=== PATIENT | male | born 1930 | race Caucasian/White ===

== ENCOUNTER 2016-08-08 10:42 | Inpatient (IN) | payer MEDICARE ==
[~2016-08-08] VITALS: Ht 160 cm; Wt 61.4 kg
[2016-08-08 12:30] VITALS: BP 114/65
[2016-08-08] MEDS ORDERED: FENTANYL PF 100 MCG/2ML ONE (13:13)
[2016-08-08] MEDS ORDERED: MIDAZOLAM 1 MG/ML, 5ML ONE (13:13)
[2016-08-08] MEDS ORDERED: HEPARIN 1,000 UNITS/ML, 10ML ONE (13:14)
[2016-08-08] MEDS ORDERED: LIDOCAINE 2%, 20ML ONE (13:14)
[2016-08-08] MEDS ORDERED: VERAPAMIL 2.5 MG/ML, 2ML ONE (13:14)
[2016-08-08] MEDS ORDERED: NITROGLYCERIN 5 MG/ML, 10ML ONE (13:16)
[2016-08-08] MEDS ORDERED: PLEASE ENTER HEIGHT AND WEIGHT MC SCH (13:30)
[2016-08-08] MEDS ORDERED: ONDANSETRON 2MG/ML, 2ML IVPush PRN (14:00)
[2016-08-08] MEDS ORDERED: DOCUSATE 100 MG CAPSULE PO PRN (14:00)
[2016-08-08] MEDS ORDERED: HYDROcodone/APAP 5/325 TABLET PO PRN (14:00)
[2016-08-08 15:09] VITALS: BP 116/61
[2016-08-08 16:15] LABS: IS PT STATUS REG ER OR PRE ER? NO
[2016-08-08] MEDS ORDERED: ONDA4TAB7 PO (16:25)
[2016-08-08] MEDS ORDERED: ASPI-647 PO (16:25)
[2016-08-08] MEDS ORDERED: HYDR500C PO (16:25)
[2016-08-08] MEDS ORDERED: ROSU5TAB PO (16:25)
[2016-08-08] MEDS ORDERED: CHOL500014 PO (16:25)
[2016-08-08] MEDS ORDERED: FURO-93 PO (16:25)
[2016-08-08] MEDS ORDERED: CLOP75TA22 PO (16:25)
[2016-08-08] MEDS ORDERED: CARV6.2512 PO (16:25)
[2016-08-08] MEDS ORDERED: IRBE300T40 PO (16:25)
[2016-08-08] MEDS ORDERED: POT25TAB PO (16:25)
[2016-08-08] MEDS ORDERED: ONDA4TAB7 IVPush (16:25)
[2016-08-08] MEDS ORDERED: FINA5TAB PO (16:25)
[2016-08-08 17:47] VITALS: BP 153/90
[2016-08-08] MEDS: FUROSEMIDE 40 MG/4 ML IV SCH (17:48)
[2016-08-08] MEDS: CARVEDILOL 6.25 MG TABLET PO SCH (17:48)
[2016-08-08 19:59] LABS: IS PT STATUS REG ER OR PRE ER? NO
[2016-08-08 20:55] VITALS: BP 128/75
[2016-08-08] MEDS: HYDROXYUREA 500 MG CAPSULE PO SCH (21:40)
[2016-08-08] MEDS: ATORVASTATIN 40 MG TABLET PO SCH (21:54)
[2016-08-08] MEDS: FAMOTIDINE 20 MG TABLET PO SCH (21:54)
[2016-08-09 01:31] VITALS: BP 112/65
[2016-08-09 05:02] LABS: BLOOD UREA NITROGEN 33 mg/dL (7-18)
[2016-08-09] MEDS: ASPIRIN 81 MG TABLET EC PO SCH (06:00)
[2016-08-09] MEDS: CARVEDILOL 6.25 MG TABLET PO SCH ×2 (06:00→17:57)
[2016-08-09] MEDS ORDERED: POTASSIUM CHLORIDE 10 MEQ TABLET.ER PO SCH (08:00)
[2016-08-09 09:35] VITALS: BP 89/45
[2016-08-09 09:36] VITALS: BP 95/54
[2016-08-09] MEDS: FINASTERIDE 5 MG TABLET PO SCH (09:37)
[2016-08-09] MEDS: FAMOTIDINE 20 MG TABLET PO SCH ×2 (09:37→21:36)
[2016-08-09] MEDS: CLOPIDOGREL 75 MG TABLET PO SCH (09:37)
[2016-08-09] MEDS: IRBESARTAN 300 MG TABLET PO SCH (09:38)
[2016-08-09] MEDS: FUROSEMIDE 40 MG/4 ML IV SCH (09:38)
[2016-08-09] MEDS: HYDROXYUREA 500 MG CAPSULE PO SCH ×2 (11:47→21:35)
[2016-08-09 13:37] VITALS: BP 108/56
[2016-08-09 17:58] VITALS: BP 129/65
[2016-08-09 19:32] VITALS: BP 99/66
[2016-08-09] MEDS ORDERED: POTASSIUM CHLORIDE 20 MEQ TAB.ER.PRT PO SCH (21:00)
[2016-08-09] MEDS: ATORVASTATIN 40 MG TABLET PO SCH (21:33)
[2016-08-10 01:18] VITALS: BP 119/57
[2016-08-10 05:03] LABS: BLOOD UREA NITROGEN 46 mg/dL (7-18)
[2016-08-10] MEDS: CARVEDILOL 6.25 MG TABLET PO SCH (05:47)
[2016-08-10] MEDS: ASPIRIN 81 MG TABLET EC PO SCH (05:47)
[2016-08-10 07:50] VITALS: BP 121/42
[2016-08-10] MEDS ORDERED: POTASSIUM CHLORIDE 20 MEQ TAB.ER.PRT PO SCH (08:00)
[2016-08-10] MEDS: HYDROXYUREA 500 MG CAPSULE PO SCH (08:23)
[2016-08-10] MEDS: CLOPIDOGREL 75 MG TABLET PO SCH (08:26)
[2016-08-10] MEDS: FINASTERIDE 5 MG TABLET PO SCH (08:26)
[2016-08-10] MEDS: IRBESARTAN 300 MG TABLET PO SCH (08:26)
[2016-08-10] MEDS: FAMOTIDINE 20 MG TABLET PO SCH (08:26)
[2016-08-10] MEDS ORDERED: FUROSEMIDE 20 MG TABLET PO SCH (09:00)
[2016-08-10] MEDS ORDERED: ATOR40TA78 PO (10:12)
[2016-08-10] MEDS ORDERED: ASPI-621 PO (10:12)
== END 2016-08-10 12:36 | disposition home or self-care (01) | DRG 280 ==
LOC: 5SO 12:30
PROC: 4A023N7 Measurement of Cardiac Sampling and Pressure, Left Heart, Percutaneous Approach (ICD-10-PCS; principal; 2016-08-08)
PROC: B2111ZZ Fluoroscopy of Multiple Coronary Arteries using Low Osmolar Contrast (ICD-10-PCS; 2016-08-08)
PROC: B2151ZZ Fluoroscopy of Left Heart using Low Osmolar Contrast (ICD-10-PCS; 2016-08-08)
DX: I21.4 Non-ST elevation (NSTEMI) myocardial infarction (principal); J96.01 Acute respiratory failure with hypoxia; I50.43 Acute on chronic combined systolic (congestive) and diastolic (congestive) heart failure; E78.5 Hyperlipidemia, unspecified; I11.0 Hypertensive heart disease with heart failure; I25.10 Atherosclerotic heart disease of native coronary artery without angina pectoris; G47.33 Obstructive sleep apnea (adult) (pediatric); I25.5 Ischemic cardiomyopathy; I34.0 Nonrheumatic mitral (valve) insufficiency; N40.0 Benign prostatic hyperplasia without lower urinary tract symptoms; Z82.3 Family history of stroke; Z82.49 Family history of ischemic heart disease and other diseases of the circulatory system; Z87.891 Personal history of nicotine dependence; I25.2 Old myocardial infarction; Z95.0 Presence of cardiac pacemaker; Z95.2 Presence of prosthetic heart valve; Z79.899 Other long term (current) drug therapy; Z79.82 Long term (current) use of aspirin
CPT/HCPCS: 36415; 71010; 80048; 80061; 83735; 84443; 84484; 85025; 93005; 93306; 93458; C1894; J1644; J1940; J2250; J3010; J3490; Q9967

== ENCOUNTER 2017-10-17 12:37 | Emergency (ER) | payer MEDICARE ==
[~2017-10-17] VITALS: Ht 170.2 cm; Wt 62.0 kg
[~2017-10-17 12:37] MED LIST: ASPI-515 PO; ASPI-621 PO; ASPI-647 PO; ATOR40TA78 PO; CARV12.543 PO; CARV6.2512 PO; CEFD300C37 PO; CHOL500045 PO; CLOP75TA52 PO; DOXY100T PO; FINA5TAB PO; FURO-93 PO; HYDR500C PO; IPRA12.9 INH; IRBE150T49 PO; IRBE300T40 PO; IRBE75TA31 PO; LACT1CAP24 PO; ONDA4TAB7 IVPush; ONDA4TAB7 PO; POLY17PO5 PO; POT25TAB PO; PREG25CA PO; QUET25TA PO; ROSU5TAB PO; SPIR25TA PO
[2017-10-17 13:32] LABS: ALBUMIN 2.6 g/dL (3.4-5.0); ANION GAP 6 mmol/L (5-15); CALCIUM 8.5 mg/dL (8.5-10.1); CHLORIDE 110 mmol/L (98-107); CREATININE 1.78 mg/dL (0.7-1.3)
[2017-10-17 13:49] LABS: INTERNATIONAL NORMALIZED RATIO 1.18 (0.93-1.1); PROTHROMBIN TIME 12.2 Seconds (9.6-11.5)
[2017-10-17 13:51] LABS: MEAN CORPUSCULAR HEMOGLOBIN 37.1 pg (27.5-34.5); MEAN CORPUSCULAR HGB CONC 31.7 g/dL (33.2-36.2); MEAN CORPUSCULAR VOLUME 117.1 fL (81-97); MEAN PLATELET VOLUME 7.3 fL (7.4-10.4); PLATELET COUNT 545 x10^3/uL (130-400); RED BLOOD COUNT 2.43 x10^6/uL (4.38-5.82)
[2017-10-17 14:03] LABS: BASOPHILS # (AUTO) 0.13 x10^3/uL (0-0.1); BASOPHILS % (AUTO) 1 % (0-1); EOSINOPHILS # (AUTO) 0.38 x10^3/uL (0-0.4); EOSINOPHILS % (AUTO) 2 % (1-7); LYMPHOCYTES # (AUTO) 0.31 x10^3/uL (1-3.4); LYMPHOCYTES % (AUTO) 1 % (22-44); MD SCAN; MONOCYTES # (AUTO) 0.54 x10^3/uL (0.2-0.8); MONOCYTES % (AUTO) 2 % (2-9); NEUTROPHILS # (AUTO) 21.25 x10^3/uL (1.8-6.8); NEUTROPHILS % (AUTO) 94 % (42-75)
[2017-10-17 15:15] LABS: MICROSCOPIC INDICATED
[2017-10-17 15:20] LABS: CULTURE INDICATED? YES
[2017-10-17 16:42] VITALS: BP 134/55
== END 2017-10-17 17:36 | disposition home or self-care (01) ==
LOC: ED 17:30
DX: R31.9 Hematuria, unspecified (principal); I25.2 Old myocardial infarction; I50.9 Heart failure, unspecified; Z95.2 Presence of prosthetic heart valve; Z95.0 Presence of cardiac pacemaker; Z87.891 Personal history of nicotine dependence
CPT/HCPCS: 36415; 51700; 80048; 81001; 82040; 85025; 85610; 85730; 87086; 87106; 99284

== ENCOUNTER 2017-10-30 13:13 | Inpatient (IN) | payer MEDICARE ==
[~2017-10-30] VITALS: Ht 160 cm; Wt 65.8 kg
[2017-10-30] MEDS ORDERED: SODIUM CHLORIDE 0.9% 1,000ML IVBOLUS ONE (13:30)
[2017-10-30] MEDS ORDERED: SODIUM CHLORIDE FLUSH 10ML SYR IVF ONE (13:30)
[2017-10-30] MEDS ORDERED: PLEASE ENTER HEIGHT AND WEIGHT MC SCH (13:30)
[2017-10-30] MEDS ORDERED: NALOXONE 0.4 MG/ML, 1ML ONE (13:32)
[2017-10-30 13:52] LABS: MEAN CORPUSCULAR HEMOGLOBIN 36.9 pg (27.5-34.5); MEAN CORPUSCULAR HGB CONC 31.9 g/dL (33.2-36.2); MEAN CORPUSCULAR VOLUME 115.4 fL (81-97); MEAN PLATELET VOLUME 6.5 fL (7.4-10.4); PLATELET COUNT 386 x10^3/uL (130-400); RED BLOOD COUNT 2.49 x10^6/uL (4.38-5.82); RED CELL DISTRIBUTION WIDTH 16.1 % (9.4-14.8)
[2017-10-30] MEDS ORDERED: NALOXONE 0.4 MG/ML, 1ML IVPush ONE (14:00)
[2017-10-30 14:02] LABS: ALBUMIN 2.8 g/dL (3.4-5.0); ANION GAP 7 mmol/L (5-15); CALCIUM 8.2 mg/dL (8.5-10.1); CHLORIDE 104 mmol/L (98-107)
[2017-10-30] MEDS ORDERED: FURO-93 PO (14:06)
[2017-10-30] MEDS ORDERED: POTA10TA6 PO (14:06)
[2017-10-30 14:08] LABS: ALANINE AMINOTRANSFERASE 24 U/L (12-78); ALKALINE PHOSPHATASE 87 U/L (45-117); BILIRUBIN,TOTAL 3.6 mg/dL (0.2-1.0); CREATININE 1.87 mg/dL (0.7-1.3); TOTAL PROTEIN 6.8 g/dL (6.4-8.2)
[2017-10-30 14:13] LABS: INTERNATIONAL NORMALIZED RATIO 1.19 (0.93-1.1); PROTHROMBIN TIME 12.2 Seconds (9.6-11.5)
[2017-10-30 14:27] LABS: BASOPHILS % (AUTO) 0 % (0-1); EOSINOPHILS # (AUTO) 0.01 x10^3/uL (0-0.4); EOSINOPHILS % (AUTO) 0 % (1-7); LYMPHOCYTES # (AUTO) 0.23 x10^3/uL (1-3.4); LYMPHOCYTES % (AUTO) 2 % (22-44); MONOCYTES # (AUTO) 0.14 x10^3/uL (0.2-0.8); MONOCYTES % (AUTO) 1 % (2-9); NEUTROPHILS # (AUTO) 9.88 x10^3/uL (1.8-6.8); NEUTROPHILS % (AUTO) 96 % (42-75)
[2017-10-30 14:28] LABS: MD SCAN
[2017-10-30] MEDS ORDERED: ASPIRIN 81 MG TABLET CHEW PO ONE (15:30)
[2017-10-30] MEDS ORDERED: ASPIRIN 81 MG TABLET CHEW ONE (15:42)
[2017-10-30] MEDS ORDERED: ONDANSETRON 2MG/ML, 2ML IVPush PRN (16:30)
[2017-10-30] MEDS ORDERED: LORazepam 2 MG/ML, 1ML IVPush PRN (16:30)
[2017-10-30] MEDS ORDERED: hydrALAzine 20 MG/ML, 1ML IVPush PRN (16:30)
[2017-10-30] MEDS ORDERED: morphine SULFATE 10 MG/ML, 1ML IVPush PRN (16:30)
[2017-10-30] MEDS ORDERED: ACETAMINOPHEN 325 MG TABLET PO PRN (16:30)
[2017-10-30 16:49] VITALS: BP 94/52
[2017-10-30 17:23] LABS: MEAN CORPUSCULAR HEMOGLOBIN 38.9 pg (27.5-34.5); MEAN CORPUSCULAR HGB CONC 33.3 g/dL (33.2-36.2); MEAN CORPUSCULAR VOLUME 116.7 fL (81-97); MEAN PLATELET VOLUME 6.4 fL (7.4-10.4); PLATELET COUNT 313 x10^3/uL (130-400); RED BLOOD COUNT 2.18 x10^6/uL (4.38-5.82); RED CELL DISTRIBUTION WIDTH 15.9 % (9.4-14.8)
[2017-10-30 17:43] LABS: HCT (SEDRATE) 28.7 % (39.2-51.8)
[2017-10-30 18:07] LABS: MICROSCOPIC INDICATED
[2017-10-30 18:08] LABS: CULTURE INDICATED? YES
[2017-10-30] MEDS: CEFTRIAXONE 1,000 MG in SODIUM CHLORIDE 0.9% 50 ML IV SCH (18:21)
[2017-10-30] MEDS: D5%-0.45% NACL 1,000 ML IV SCH (18:21)
[2017-10-30 18:22] LABS: BASOPHILS # (AUTO) 0.03 x10^3/uL (0-0.1); BASOPHILS % (AUTO) 0 % (0-1); EOSINOPHILS # (AUTO) 0.01 x10^3/uL (0-0.4); EOSINOPHILS % (AUTO) 0 % (1-7); LYMPHOCYTES # (AUTO) 0.29 x10^3/uL (1-3.4); LYMPHOCYTES % (AUTO) 3 % (22-44); MD SCAN; MONOCYTES # (AUTO) 0.23 x10^3/uL (0.2-0.8); MONOCYTES % (AUTO) 3 % (2-9); NEUTROPHILS # (AUTO) 8.76 x10^3/uL (1.8-6.8); NEUTROPHILS % (AUTO) 94 % (42-75)
[2017-10-30 18:45] VITALS: BP 92/87
[2017-10-31 02:44] VITALS: BP 90/43
[2017-10-31 05:25] LABS: CHLORIDE 106 mmol/L (98-107)
[2017-10-31 05:37] LABS: ALANINE AMINOTRANSFERASE 22 U/L (12-78); ALBUMIN 2.2 g/dL (3.4-5.0); ALKALINE PHOSPHATASE 72 U/L (45-117); ANION GAP 8 mmol/L (5-15); CALCIUM 7.6 mg/dL (8.5-10.1); CREATININE 1.57 mg/dL (0.7-1.3)
[2017-10-31 07:35] VITALS: BP 94/51
[2017-10-31] MEDS: PANTOPRAZOLE 40 MG IV IVPush SCH (08:32)
[2017-10-31 12:40] VITALS: BP 101/60
[2017-10-31] MEDS: D5%-0.45% NACL 1,000 ML IV SCH (15:47)
[2017-10-31] MEDS: CEFTRIAXONE 1,000 MG in SODIUM CHLORIDE 0.9% 50 ML IV SCH (15:47)
[2017-10-31 19:09] VITALS: BP 135/72
[2017-10-31] MEDS: HYDROcodone/APAP 5/325 TABLET PO PRN (23:51)
[2017-11-01 02:31] VITALS: BP 117/58
[2017-11-01 05:06] LABS: MEAN CORPUSCULAR HEMOGLOBIN 38.2 pg (27.5-34.5); MEAN CORPUSCULAR HGB CONC 32.3 g/dL (33.2-36.2); MEAN CORPUSCULAR VOLUME 118.1 fL (81-97); MEAN PLATELET VOLUME 6.9 fL (7.4-10.4); PLATELET COUNT 313 x10^3/uL (130-400); RED BLOOD COUNT 2.23 x10^6/uL (4.38-5.82); RED CELL DISTRIBUTION WIDTH 16.5 % (9.4-14.8)
[2017-11-01 05:16] LABS: ALANINE AMINOTRANSFERASE 24 U/L (12-78); ALBUMIN 2.3 g/dL (3.4-5.0); ANION GAP 7 mmol/L (5-15); CALCIUM 7.6 mg/dL (8.5-10.1); CHLORIDE 104 mmol/L (98-107)
[2017-11-01 05:21] LABS: ALKALINE PHOSPHATASE 73 U/L (45-117); BILIRUBIN,TOTAL 1.4 mg/dL (0.2-1.0); CREATININE 1.43 mg/dL (0.7-1.3); TOTAL PROTEIN 6.2 g/dL (6.4-8.2)
[2017-11-01 05:46] LABS: BASOPHILS # (AUTO) 0.03 x10^3/uL (0-0.1); BASOPHILS % (AUTO) 0 % (0-1); EOSINOPHILS # (AUTO) 0.16 x10^3/uL (0-0.4); EOSINOPHILS % (AUTO) 2 % (1-7); LYMPHOCYTES # (AUTO) 0.45 x10^3/uL (1-3.4); LYMPHOCYTES % (AUTO) 7 % (22-44); MD SCAN; MONOCYTES # (AUTO) 0.22 x10^3/uL (0.2-0.8); MONOCYTES % (AUTO) 3 % (2-9); NEUTROPHILS # (AUTO) 5.81 x10^3/uL (1.8-6.8); NEUTROPHILS % (AUTO) 87 % (42-75)
[2017-11-01 06:53] VITALS: BP 122/64
[2017-11-01] MEDS: PANTOPRAZOLE 40 MG IV IVPush SCH (07:59)
[2017-11-01] MEDS ORDERED: PHARMACY INSTRUCTION MC SCH (14:00)
[2017-11-01 14:07] VITALS: BP 148/77
[2017-11-01] MEDS: D5%-0.45% NACL 1,000 ML IV SCH (14:42)
[2017-11-01] MEDS: ERTAPENEM 1 GM in SODIUM CHLORIDE 0.9% 50 ML IV SCH (14:42)
[2017-11-01] MEDS: CEFTRIAXONE 1,000 MG in SODIUM CHLORIDE 0.9% 50 ML IV SCH (16:48)
[2017-11-01 18:47] VITALS: BP 116/66
[2017-11-02 00:57] VITALS: BP 143/67
[2017-11-02 07:10] VITALS: BP 149/72
[2017-11-02] MEDS: PANTOPRAZOLE 40 MG IV IVPush SCH (11:25)
[2017-11-02] MEDS: AMPICILLIN 500MG CAPSULE PO SCH ×3 (11:25→21:37)
[2017-11-02] MEDS: D5%-0.45% NACL 1,000 ML IV SCH (15:46)
[2017-11-02] MEDS: ERTAPENEM 1 GM in SODIUM CHLORIDE 0.9% 50 ML IV SCH (15:46)
[2017-11-02 16:01] VITALS: BP 122/75
[2017-11-02 18:44] VITALS: BP 110/61
[2017-11-03 00:24] VITALS: BP 148/65
[2017-11-03 05:55] LABS: MEAN CORPUSCULAR HEMOGLOBIN 38.1 pg (27.5-34.5); MEAN CORPUSCULAR HGB CONC 32.7 g/dL (33.2-36.2); MEAN CORPUSCULAR VOLUME 116.5 fL (81-97); MEAN PLATELET VOLUME 7.1 fL (7.4-10.4); PLATELET COUNT 316 x10^3/uL (130-400); RED CELL DISTRIBUTION WIDTH 15.9 % (9.4-14.8)
[2017-11-03 05:59] LABS: CHLORIDE 105 mmol/L (98-107)
[2017-11-03 06:11] LABS: ALANINE AMINOTRANSFERASE 24 U/L (12-78); ALBUMIN 2.4 g/dL (3.4-5.0); ALKALINE PHOSPHATASE 86 U/L (45-117); ANION GAP 5 mmol/L (5-15); BILIRUBIN,TOTAL 1.3 mg/dL (0.2-1.0); CREATININE 1.11 mg/dL (0.7-1.3); TOTAL PROTEIN 6.1 g/dL (6.4-8.2)
[2017-11-03 06:22] LABS: BASOPHILS # (AUTO) 0.02 x10^3/uL (0-0.1); BASOPHILS % (AUTO) 0 % (0-1); EOSINOPHILS # (AUTO) 0.14 x10^3/uL (0-0.4); EOSINOPHILS % (AUTO) 2 % (1-7); LYMPHOCYTES # (AUTO) 0.44 x10^3/uL (1-3.4); LYMPHOCYTES % (AUTO) 7 % (22-44); MD SCAN; MONOCYTES # (AUTO) 0.44 x10^3/uL (0.2-0.8); MONOCYTES % (AUTO) 7 % (2-9); NEUTROPHILS # (AUTO) 5.15 x10^3/uL (1.8-6.8); NEUTROPHILS % (AUTO) 83 % (42-75)
[2017-11-03 07:39] VITALS: BP 134/66
[2017-11-03] MEDS: AMPICILLIN 500MG CAPSULE PO SCH ×3 (08:43→23:02)
[2017-11-03] MEDS: PANTOPROZOLE 40MG TABLET PO SCH (08:43)
[2017-11-03] MEDS ORDERED: AMPI500C2 PO (13:15)
[2017-11-03] MEDS ORDERED: CARV3.1212 PO (13:31)
[2017-11-03] MEDS ORDERED: ERTA1VIA IV (13:31)
[2017-11-03 15:03] VITALS: BP 143/64
[2017-11-03] MEDS: ERTAPENEM 1 GM in SODIUM CHLORIDE 0.9% 50 ML IV SCH (15:55)
[2017-11-03] MEDS: D5%-0.45% NACL 1,000 ML IV SCH (15:55)
[2017-11-03 20:45] VITALS: BP 146/69
[2017-11-04 03:37] VITALS: BP 131/62
[2017-11-04 07:00] VITALS: BP 149/73
[2017-11-04] MEDS: D5%-0.45% NACL 1,000 ML IV SCH ×2 (07:00→20:53)
[2017-11-04] MEDS: PANTOPROZOLE 40MG TABLET PO SCH (08:10)
[2017-11-04] MEDS: AMPICILLIN 500MG CAPSULE PO SCH ×3 (08:10→20:53)
[2017-11-04 15:00] VITALS: BP 142/72
[2017-11-04] MEDS: ERTAPENEM 1 GM in SODIUM CHLORIDE 0.9% 50 ML IV SCH (16:39)
[2017-11-04 19:46] VITALS: BP 125/63
[2017-11-04] MEDS: HYDROcodone/APAP 5/325 TABLET PO PRN (20:53)
[2017-11-05 03:06] VITALS: BP 118/67
[2017-11-05 07:00] VITALS: BP 151/72
[2017-11-05] MEDS: AMPICILLIN 500MG CAPSULE PO SCH (07:37)
[2017-11-05] MEDS: PANTOPROZOLE 40MG TABLET PO SCH (07:37)
[2017-11-05 12:55] VITALS: BP 132/75
[2017-11-05] MEDS: ERTAPENEM 1 GM in SODIUM CHLORIDE 0.9% 50 ML IV SCH (15:53)
[2017-11-05] MEDS ORDERED: SPIR25TA PO (16:48)
[2017-11-05 17:01] VITALS: BP 101/81
== END 2017-11-05 16:08 | DRG 871 ==
LOC: ED 13:43 → EDIP 15:04 → 5SO 16:36
PROVIDERS: ADMIT Internal Medicine; ATTEND Internal Medicine
DX: A41.9 Sepsis, unspecified organism (principal); G93.40 Encephalopathy, unspecified; N17.0 Acute kidney failure with tubular necrosis; N39.0 Urinary tract infection, site not specified; I50.42 Chronic combined systolic (congestive) and diastolic (congestive) heart failure; I25.2 Old myocardial infarction; D53.9 Nutritional anemia, unspecified; Z66 Do not resuscitate; B95.2 Enterococcus as the cause of diseases classified elsewhere; B96.1 Klebsiella pneumoniae [K. pneumoniae] as the cause of diseases classified elsewhere; Z16.12 Extended spectrum beta lactamase (ESBL) resistance; E86.0 Dehydration; J44.9 Chronic obstructive pulmonary disease, unspecified; I71.2 Thoracic aortic aneurysm, without rupture; N40.0 Benign prostatic hyperplasia without lower urinary tract symptoms; I25.10 Atherosclerotic heart disease of native coronary artery without angina pectoris; F03.90 Unspecified dementia, unspecified severity, without behavioral disturbance, psychotic disturbance, mood disturbance, and anxiety; Z86.010 Personal history of colon polyps; Z90.79 Acquired absence of other genital organ(s); Z95.0 Presence of cardiac pacemaker; Z95.3 Presence of xenogenic heart valve; Z87.891 Personal history of nicotine dependence; Z72.89 Other problems related to lifestyle; Z86.14 Personal history of Methicillin resistant Staphylococcus aureus infection; Z98.49 Cataract extraction status, unspecified eye; Z91.013 Allergy to seafood
CPT/HCPCS: 36415; 36600; 71045; 80053; 81001; 82140; 82803; 83605; 83735; 83880; 84100; 84145; 84484; 85025; 85610; 85651; 87040; 87077; 87086; 87186; 93005; 99285; J0696; J1335; J2310; C9113; J7030